=== PATIENT | male | born 1990 | race Two or more races ===

== ENCOUNTER 2018-10-31 20:47 | Emergency (ER) | payer SELFPAY ==
[~2018-10-31] VITALS: Ht 182.9 cm; Wt 90.7 kg
[2018-10-31 21:47] VITALS: BP 141/82
== END 2018-10-31 23:32 | disposition home or self-care (01) ==
LOC: ER 20:49
DX: H66.92 Otitis media, unspecified, left ear (principal); J45.909 Unspecified asthma, uncomplicated; F10.10 Alcohol abuse, uncomplicated; F17.200 Nicotine dependence, unspecified, uncomplicated; F12.10 Cannabis abuse, uncomplicated; Y90.9 Presence of alcohol in blood, level not specified